=== PATIENT | female | born 1980 | race Asian ===

== ENCOUNTER 2017-09-19 05:02 | Emergency (ER) | payer OTHER ==
[~2017-09-19] VITALS: Ht 167.6 cm; Wt 63.6 kg
[2017-09-19 05:03] VITALS: BP 126/95
[2017-09-21] MEDS ORDERED: NALT50TA PO (15:49)
[2017-09-21] MEDS ORDERED: FLUO-191 PO (15:49)
[2017-09-22] MEDS ORDERED: FLUO-191 PO (09:15)
[2017-09-22] MEDS ORDERED: NALT50TA6 PO (09:15)
== END 2017-09-19 05:40 | disposition left against medical advice (07) ==
LOC: EMS 05:03
DX: F41.9 Anxiety disorder, unspecified (principal); Z53.21 Procedure and treatment not carried out due to patient leaving prior to being seen by health care provider

== ENCOUNTER 2017-09-24 05:50 | Emergency (ER) | payer MEDICAID ==
[~2017-09-24] VITALS: Ht 154.9 cm; Wt 72.7 kg
[~2017-09-24 05:50] MED LIST: FLUO-191 PO; NALT50TA PO
[2017-09-24 05:52] VITALS: BP 160/120
== END 2017-09-24 07:42 | disposition left against medical advice (07) ==
LOC: EMS 05:51
DX: F41.9 Anxiety disorder, unspecified (principal); Z53.21 Procedure and treatment not carried out due to patient leaving prior to being seen by health care provider